=== PATIENT | female | born 1935 | race Caucasian/White ===

== ENCOUNTER → 2017-07-19 | Outpatient (CLI) | payer MEDICARE, OTHER ==
[~2017-07-19] VITALS: Ht 152.4 cm; Wt 80.3 kg
[~2017-07-19] MED LIST: ALLO100T PO; AMLO5TAB2 PO; CARV12.511 PO; CHOL100018 PO; CITA40TA6 PO; ESOM20CA31 PO; FERR324T10 PO; FURO40TA5 PO; HYDR-2132 PO; LEVO100T12 PO; OMEP40CA37 PO; POTASSIUM; REGADENOSON 0.4 MG/5 ML PF SYG IVP SCH; RIVA10TA PO; SILD20TA PO; TRAM50TA4 PO; URSO300C4 PO
== END | disposition home or self-care (01) ==
LOC: SHCH 11:12
PROVIDERS: ATTEND Internal Medicine Cardiovascular Disease
DX: R07.9 Chest pain, unspecified (principal)
CPT/HCPCS: 78452; 93017; 96374; A9500 ×2; J2785